=== PATIENT | female | born 1960 | race Caucasian/White ===

== ENCOUNTER 2017-10-25 20:37 | Emergency (ER) | payer SELFPAY ==
[2017-10-25] MEDS ORDERED: FENTANYL CITRATE INJ/PF 100 MCG/2 ML AMPUL IV ONE ×3 (20:56→23:18)
[2017-10-25] MEDS ORDERED: ONDANSETRON HCL INJ/PF 4 MG/2 ML SDV IV ONE (21:26)
--- NOTE | 2017-10-25 21:45 | RADIOLOGY REPORT (SQ) ---
EXAM DESCRIPTION: ELBOW LEFT AP/LATERAL COMPLETED DATE/TIME: 10/25/2017 9:33 pm REASON FOR STUDY: fall obtain COMPARISON: None. NUMBER OF VIEWS: Two views. TECHNIQUE: AP and lateral radiographic images acquired of the left elbow. LIMITATIONS: None. FINDINGS: MINERALIZATION: Normal. BONES: Comminuted fracture of the distal humerus. Displacement of the medial epicondyle. JOINT: Joint effusion. SOFT TISSUES: No soft tissue swelling. No foreign body. OTHER: No other significant finding. IMPRESSION: COMMINUTED FRACTURE OF THE DISTAL HUMERUS. TECHNICAL DOCUMENTATION: JOB ID: [id number] [employer]- All Rights Reserved Reading location - IP/workstation name: [email or web address]
--- NOTE | 2017-10-25 21:45 | RADIOLOGY REPORT (SQ) ---
EXAM DESCRIPTION: SHOULDER LEFT 2 OR MORE VIEWS COMPLETED DATE/TIME: 10/25/2017 9:33 pm REASON FOR STUDY: fall obtain COMPARISON: None. NUMBER OF VIEWS: Two views. TECHNIQUE: Frontal and lateral images acquired of the left shoulder. LIMITATIONS: None. FINDINGS: MINERALIZATION: Normal. BONES: No acute fracture or dislocation. No worrisome bone lesions. JOINTS: No dislocation. VISUALIZED LUNGS AND RIBS: No pneumothorax. No rib fracture. SOFT TISSUES: No radiopaque foreign body. OTHER: No other significant finding. IMPRESSION: NEGATIVE STUDY OF THE LEFT SHOULDER. NO RADIOGRAPHIC EVIDENCE OF ACUTE INJURY. TECHNICAL DOCUMENTATION: JOB ID: [id number] [email or web address]- All Rights Reserved Reading location - IP/workstation name: [email or web address]
--- NOTE | 2017-10-25 21:46 | RADIOLOGY REPORT (SQ) ---
EXAM DESCRIPTION: WRIST LEFT 3 VIEWS COMPLETED DATE/TIME: 10/25/2017 9:33 pm REASON FOR STUDY: fall obtain COMPARISON: None. NUMBER OF VIEWS: Three views. TECHNIQUE: AP, lateral, and oblique radiographic images acquired of the left wrist. LIMITATIONS: None. FINDINGS: MINERALIZATION: Normal. BONES: Comminuted impacted fractures of the distal radius and ulna with dorsal angulation. SOFT TISSUES: No soft tissue swelling. No foreign body. OTHER: No other significant finding. IMPRESSION: FRACTURES OF THE DISTAL RADIUS AND ULNA. TECHNICAL DOCUMENTATION: JOB ID: [id number] [employer]- All Rights Reserved Reading location - IP/workstation name: [email or web address]
[2017-10-25] MEDS ORDERED: BUPIVACAINE HCL 0.25 % INJ/PF (2.5 MG/1 ML) 30 ML VIAL INJ ONE (22:02)
[2017-10-25] MEDS ORDERED: LORAZEPAM INJ 2 MG/1 ML VIAL IV ONE (22:17)
[2017-10-25] MEDS ORDERED: KETOROLAC TROMETHAMINE INJ/PF 30 MG/1 ML SDV IV ONE (22:22)
--- NOTE | 2017-10-25 23:22 | ER Document Report ---
ED General - General Chief Complaint: Arm Injury Stated Complaint: FALL Time Seen by Provider: 10/25/17 20:46 - HPI Patient complains to provider of: Left arm injury Notes: Patient coming in for left arm injury. Patient states that she was in a motor home she fell landing on her left arm. Patient has obvious deformity to the wrist was placed in Garcia splint by EMS transported the ER. Patient was given 100 fentanyl prior to arrival. Patient continues to be in pain. Patient denies any loss consciousness denies any other areas of pain. Past Medical History - Social History Smoking Status: Unknown if Ever Smoked Family History: Reviewed & Not Pertinent Patient has suicidal ideation: No Patient has homicidal ideation: No - Past Medical History Cardiac Medical History: Reports: Hx Hypercholesterolemia Renal/ Medical History: Denies: Hx Peritoneal Dialysis Psychiatric Medical History: Reports: Hx Attention Deficit Hyperactivity Disorder Past Surgical History: Reports: Hx Abdominal Surgery - 2013 Review of Systems - Review of Systems Constitutional: No symptoms reported EENT: No symptoms reported Cardiovascular: No symptoms reported Respiratory: No symptoms reported Gastrointestinal: No symptoms reported Genitourinary: No symptoms reported Female Genitourinary: No symptoms reported Musculoskeletal: Other - Left arm injury Skin: No symptoms reported Hematologic/Lymphatic: No symptoms reported Neurological/Psychological: No symptoms reported Physical Exam - Vital signs Vitals: Resp Pulse Ox 16 96 10/25/17 21:07 10/25/17 21:07 Interpretation: Normal - General General appearance: Appears well, Alert - HEENT Head: Normocephalic, Atraumatic Eyes: Normal Pupils: PERRL - Respiratory Respiratory status: No respiratory distress Chest status: Nontender Breath sounds: Normal Chest palpation: Normal - Cardiovascular Rhythm: Regular Heart sounds: Normal auscultation Murmur: No - Abdominal Inspection: Normal Distension: No distension Bowel sounds: Normal Tenderness: Nontender Organomegaly: No organomegaly - Back Back: Normal, Nontender - Extremities General upper extremity: Normal color, Normal temperature, Other - Right arm unaffected left arm has obvious deformity to the left wrist and some swelling to the elbow. Patient is tender to palpation of the shoulder elbow and left wrist. General lower extremity: Normal inspection, Nontender, Normal color, Normal ROM , Normal temperature, Normal weight bearing. No: Aline's sign - Neurological Neuro grossly intact: Yes Cognition: Normal Orientation: AAOx4 Miguel Coma Scale Eye Opening: Spontaneous Miguel Coma Scale Verbal: Oriented Hi Hat Coma Scale Motor: Obeys Commands Miguel Coma Scale Total: 15 Speech: Normal Motor strength normal: LUE, RUE, LLE, RLE Sensory: Normal - Psychological Associated symptoms: Normal affect, Normal mood - Skin Skin Temperature: Warm Skin Moisture: Dry Skin Color: Normal Course - Re-evaluation Re-evalutation: 10/25/17 23:20 Distal humerus fracture with displacement of the medial condyle. Patient also has a distal radius fracture with some angulation along with distal ulnar fracture. Hematoma block was performed patient is required multiple doses of fentanyl as that we are currently out of Dilaudid and morphine. I did discuss case with orthopedics on-call Dr. Reyes requesting a CT scan of the elbow. We will have the patient follow-up in his office gentle traction was placed on the distal wrist and sugar tong with a posterior long-arm was placed compartments are soft 10/25/17 23:23 10/25/17 23:48 Patient was splinted with my assistance. The child gentle traction to try realign the distal pieces of the radius unla however patient did not seem to tolerate this procedure well do not know exactly aligned the pieces however patient will follow up with orthopedics tomorrow Refill intact sensation intact distal. - Vital Signs Vital signs: Temp Pulse Resp BP Pulse Ox 19 150/88 H 94 10/26/17 01:01 10/26/17 01:01 10/26/17 01:01 Procedures - Immobilization Left Arm Immobilizer type: Long arm posterior, Sugar tong Performed by: Provider assisted Post-Proc Neuro Vasc Exam: Normal Notes: 10/25/17 23:50 Patient received multiple narcotic medications and hematoma block upon manipulation patient continued to state increased pain does have some movement of the distal pieces however do not believe alignment was perfect. Patient has a long-arm along with sugar tong for her elbow and wrist fractures. Patient follow-up with orthopedics tomorrow. Discharge - Discharge Clinical Impression: Medial epicondyle displacement Closed fracture distal radius and ulna Qualifiers: Encounter type: initial encounter Laterality: left Qualified Code(s): S52.502A - Unspecified fracture of the lower end of left radius, initial encounter for closed fracture Humeral distal fracture Qualifiers: Encounter type: initial encounter Fracture type: closed Fracture morphology: unspecified fracture morphology Laterality: left Qualified Code(s): S42.402A - Unspecified fracture of lower end of left humerus, initial encounter for closed fracture Condition: Good Disposition: HOME, SELF-CARE Instructions: Fractured Radius and Ulna ([facility]), Oral Narcotic Medication ([facility]) Additional Instructions: Please follow-up with orthopedics. I would suggest calling their office tomorrow to schedule an appointment. Please continue to wear the sling and the splint until you follow-up with orthopedics. Take pain medication as prescribed he also may take Tylenol and Motrin for pain control. Prescriptions: Ibuprofen [Motrin 600 mg Tablet] 600 mg PO Q8HP PRN #90 tablet PRN Reason: Oxycodone HCl 5 - 10 mg PO Q6 PRN #30 tablet PRN Reason: Referrals: MISSY DRAKE NP [Primary Care Provider] - Follow up as needed VARSHA SENIOR MD [ACTIVE STAFF] - Follow up as needed (Call Dr. Schroeder office tomorrow to set up an orthopedic appointment.)
[2017-10-25] MEDS ORDERED: HYDROCODONE/ACETAMINOPHEN 5-325 MG (6 TAB/ER DISP) PO PRN (23:27)
[2017-10-25] MEDS ORDERED: HYDROCODONE/ACETAMINOPHEN 5-325 MG TABLET PO ONE (23:28)
--- NOTE | 2017-10-25 23:30 | RADIOLOGY REPORT (SQ) ---
EXAM DESCRIPTION: CT LT UPPER EXTREMITY WITHOUT CLINICAL HISTORY: 57 years Female, elbow pain fracture COMPARISON: CR, same day. TECHNIQUE: No contrast. Coronal and sagittal reformat. This exam was performed according to our departmental dose-optimization program, which includes automated exposure control, adjustment of the mA and/or kV according to patient size and/or use of iterative reconstruction technique. FINDINGS: Comminuted, complex predominantly intercondylar fracture of the distal humerus with intra-articular components and fracture extending 5 cm into the distal diaphysis of the right humerus. IMPRESSION: Complex intercondylar fracture of the distal left humerus.
[2017-10-26 01:14] VITALS: BP 150/88
== END 2017-10-26 01:30 | disposition home or self-care (01) ==
LOC: ER 20:37
PROC: 0PSGXZZ Reposition Left Humeral Shaft, External Approach (ICD-10-PCS; principal; 2017-10-25)
DX: S42.442A Displaced fracture (avulsion) of medial epicondyle of left humerus, initial encounter for closed fracture (principal); S52.502A Unspecified fracture of the lower end of left radius, initial encounter for closed fracture; S42.402A Unspecified fracture of lower end of left humerus, initial encounter for closed fracture; W18.30XA Fall on same level, unspecified, initial encounter; E78.00 Pure hypercholesterolemia, unspecified
CPT/HCPCS: 99284; 96374; 96375; 73070; 73030; 73110; 73200; 24565; J3010; J1885; J2060; J2405

== ENCOUNTER 2017-11-01 10:15 | Day surgery (SDC) | payer SELFPAY ==
--- NOTE | 2017-10-31 13:14 | RADIOLOGY REPORT (SQ) ---
EXAM DESCRIPTION: CHEST PA/LATERAL COMPLETED DATE/TIME: 10/31/2017 1:01 pm REASON FOR STUDY: PRE OP COMPARISON: None. EXAM PARAMETERS: NUMBER OF VIEWS: two views TECHNIQUE: Digital Frontal and Lateral radiographic views of the chest acquired. RADIATION DOSE: NA LIMITATIONS: none FINDINGS: LUNGS AND PLEURA: No opacities, masses or pneumothorax. No pleural effusion. MEDIASTINUM AND HILAR STRUCTURES: No masses or contour abnormalities. HEART AND VASCULAR STRUCTURES: Heart normal size. No evidence for failure. BONES: Osteoporotic with 50% L1 compression deformity HARDWARE: None in the chest. OTHER: No other significant finding. IMPRESSION: NO SIGNIFICANT RADIOGRAPHIC FINDING IN THE CHEST. TECHNICAL DOCUMENTATION: JOB ID: [id number] [employer]- All Rights Reserved Reading location - IP/workstation name: [email or web address]
[2017-10-31 13:18] LABS: ABSOLUTE EOSINOPHILS # (AUTO) 0.2 10^3/uL (0.0-0.6); ABSOLUTE LYMPHOCYTES (AUTO) 1.5 10^3/uL (0.5-4.7); ABSOLUTE MONOCYTES (AUTO) 0.6 10^3/uL (0.1-1.4); ABSOLUTE NEUT (AUTO) 5.1 10^3/uL (1.7-8.2); BASOPHILS % (AUTO) 0.3 % (0-2); EOSINOPHILS % (AUTO) 2.2 % (0-6); HEMATOCRIT 35.4 % (36.0-47.0); HEMOGLOBIN 12.3 g/dL (12.0-15.5); LYMPHOCYTES % (AUTO) 19.8 % (13-45); MEAN CORPUSCULAR HEMOGLOBIN 29.8 pg (27.0-33.4); MEAN CORPUSCULAR HGB CONC 34.8 g/dL (32.0-36.0); MEAN CORPUSCULAR VOLUME 86 fl (80-97); MONOCYTES % (AUTO) 8.3 % (3-13); PLATELET COUNT 253 10^3/uL (150-450); RED BLOOD COUNT 4.12 10^6/uL (3.72-5.28); RED CELL DISTRIBUTION WIDTH 12.3 % (11.5-14.0); SEGMENTED NEUTROPHILS % (AUTO) 69.4 % (42-78); TOTAL CELLS COUNTED % (AUTO) 100 %; WHITE BLOOD COUNT 7.4 10^3/uL (4.0-10.5)
[2017-10-31 13:40] LABS: ANION GAP 10 (5-19); BLOOD UREA NITROGEN 13 mg/dL (7-20); CALCIUM 9.6 mg/dL (8.4-10.2); CARBON DIOXIDE 31 mmol/L (22-30); CHLORIDE 98 mmol/L (98-107); GLUCOSE 100 mg/dL (75-110); POTASSIUM 3.6 mmol/L (3.6-5.0); SODIUM 139.2 mmol/L (137-145)
--- NOTE | 2017-10-31 15:51 | EKG REPORT ---
SEVERITY:- BORDERLINE ECG - SINUS RHYTHM BORDERLINE INFERIOR Q WAVES BORDERLINE PROLONGED QT INTERVAL : Confirmed by: Donna Calderon 31-Oct-2017 15:51:22
[~2017-11-01 10:15] MED LIST: CEFAZOLIN 2 GM/D5W RTU 2 GM/50 ML RTUPB IV PRN; LACTATED RINGERS 1000 ML IV PRN; LIDOCAINE 0.5% INJ-PF (5 MG/ML) 50 ML SDV SUBCUT PRN
[2017-11-01 10:41] LABS: APPEARANCE,URINE SLIGHTLY-CLOUDY; BILIRUBIN,URINE NEGATIVE (NEGATIVE); COLOR,URINE YELLOW; GLUCOSE, URINE NEGATIVE (NEGATIVE); KETONES,URINE NEGATIVE (NEGATIVE); LEUKOCYTE ESTERASE,URINE MODERATE (NEGATIVE); NITRITE,URINE POSITIVE (NEGATIVE); PROTEIN,URINE NEGATIVE (NEGATIVE); UROBILINOGEN,URINE NEGATIVE mg/dL (<2.0)
[2017-11-01] MEDS ORDERED: BUPIVACAINE HCL 0.5 % INJ/PF 30 ML SDV ONE (11:08)
[2017-11-01] MEDS ORDERED: FENTANYL CITRATE INJ/PF 250 MCG/5 ML AMPULE ONE (11:15)
[2017-11-01] MEDS ORDERED: FENTANYL CITRATE INJ/PF 100 MCG/2 ML AMPUL ONE (11:15)
[2017-11-01] MEDS ORDERED: ACETAMINOPHEN 100 ML IV ONE (11:16)
[2017-11-01] MEDS ORDERED: MIDAZOLAM 2 MG/2 ML INJ ONE ×2 (11:16→12:07)
[2017-11-01] MEDS ORDERED: DEXAMETHASONE SOD PHOSPHATE INJ 4 MG/1 ML VIAL ONE (11:16)
[2017-11-01] MEDS ORDERED: EPHEDRINE SULFATE INJ 50 MG/1 ML AMPULE ONE (11:16)
[2017-11-01] MEDS ORDERED: PROPOFOL INJ 200 MG/20 ML VIAL IV ONE (11:16)
[2017-11-01] MEDS ORDERED: ONDANSETRON HCL INJ/PF 4 MG/2 ML SDV ONE (11:16)
[2017-11-01] MEDS ORDERED: FENTANYL CITRATE INJ/PF 100 MCG/2 ML AMPUL IV PRN ×6 (13:40→18:21)
[2017-11-01] MEDS ORDERED: PROMETHAZINE HCL INJ 25 MG/1 ML VIAL IV PRN ×2 (13:40→18:21)
[2017-11-01] MEDS ORDERED: DIPHENHYDRAMINE HCL 50 MG/ML VIAL IV PRN ×3 (13:40→18:21)
[2017-11-01] MEDS ORDERED: MEPERIDINE HCL/PF INJ 25 MG/1 ML DISP.SYRIN IV PRN (13:40)
[2017-11-01] MEDS ORDERED: SUCCINYLCHOLINE CHLORIDE INJ 200 MG/10 ML VIAL ONE (15:01)
[2017-11-01] MEDS ORDERED: LABETALOL HCL INJ 20 MG/4 ML DISP.SYRIN IV ONE (15:52)
--- NOTE | 2017-11-01 16:26 | RADIOLOGY REPORT (SQ) ---
EXAM DESCRIPTION: NO CHG FLUORO; WRIST LEFT 3 VIEWS COMPLETED DATE/TIME: 11/01/2017 3:15 pm REASON FOR STUDY: ORIF LEFT WRIST ASST WITH FLUORO IN OR COMPARISON: Radiographs 10/25/2017 FLUOROSCOPY TIME: 1 minutes 2 seconds 5 Images saved to PACS RADIATION DOSE: 1.3 mGy LIMITATIONS: None. PROCEDURE: ORIF distal radial and ulnar fractures PE FINDINGS: Images obtained from fluoro document placement of a compression plate on the distal radius secured by multiple screws and a medullary pin or dwight in the distal ulna. IMPRESSION: ORIF. Refer to operative note for further information. COMMENT: PQRS 6045F: Fluoroscopy time of the procedure is documented in the report. TECHNICAL DOCUMENTATION: JOB ID: [id number] [employer]- All Rights Reserved Reading location - IP/workstation name: [email or web address]
--- NOTE | 2017-11-01 16:26 | RADIOLOGY REPORT (SQ) ---
EXAM DESCRIPTION: NO CHG FLUORO; WRIST LEFT 3 VIEWS COMPLETED DATE/TIME: 11/01/2017 3:15 pm REASON FOR STUDY: ORIF LEFT WRIST ASST WITH FLUORO IN OR COMPARISON: Radiographs 10/25/2017 FLUOROSCOPY TIME: 1 minutes 2 seconds 5 Images saved to PACS RADIATION DOSE: 1.3 mGy LIMITATIONS: None. PROCEDURE: ORIF distal radial and ulnar fractures PE FINDINGS: Images obtained from fluoro document placement of a compression plate on the distal radius secured by multiple screws and a medullary pin or dwight in the distal ulna. IMPRESSION: ORIF. Refer to operative note for further information. COMMENT: PQRS 6045F: Fluoroscopy time of the procedure is documented in the report. TECHNICAL DOCUMENTATION: JOB ID: [id number] [email or web address]- All Rights Reserved Reading location - IP/workstation name: [email or web address]
[2017-11-01] MEDS ORDERED: ONDANSETRON 4 MG TAB.RAPDIS PO PRN (18:09)
--- NOTE | 2017-11-01 18:09 | Discharge Summary ---
Discharge Summary (SDC) - Discharge Final Diagnosis: Fracture of distal radius and ulna, fracture of distal humerus Date of Surgery: 11/01/17 Discharge Date: 11/02/17 Condition: Good Treatment or Instructions: Schedule Follow Up w/ Dr. Castillo Wright @ [facility] to be seen in 10-14 days or as scheduled Welcome: [place]: [place]: Ice and elevate Keep splint clean/dry/intact. If your fingers become numb please unwrap the Grant wrap but leave the splint in place, if the sensation does not return within 30 minutes please return to the emergency department. May begin finger range of motion attempting to make full fist. Please use ibuprofen (Motrin or Advil) 600-800 mg every 8 hours as needed for pain or fever DO NOT TAKE w/ TORADOL may use once TORADOL complete. You may also use acetaminophen (Tylenol) 1000 mg every 4-6 hours as needed for pain or fever. Please be aware that many medications contain acetaminophen, do not exceed a total of 1000 mg of acetaminophen every 6 hours. If ibuprofen and acetaminophen are not sufficient for your pain you may take the Percocet/[place]. Please be aware that the Percocet/[place] does contain Tylenol. Stool softener of choice when on pain medication. Prescriptions: Nitrofurantoin Monohyd/M-Cryst [Macrobid 100 mg Capsule] 100 mg PO BID 7 Days # 14 capsule Oxycodone HCl/Acetaminophen [Endocet 7.5-325 mg Tablet] 1 each PO Q6 #40 tablet Referrals: MISSY DRAKE NP [Primary Care Provider] - Discharge Diet: As Tolerated, Regular Respiratory Treatments at Home: Deep Breathing/Coughing Discharge Activity: No Lifting Over 10 Pounds, No Lifting/Push/Pulling Home Care Assistance: None Needed Report the Following to Your Physician Immediately: Shortness of Breath, Fever over 101 Degrees, Unusual Bleeding, Redness, Swelling, Warmth, Drainage-Yellow
--- NOTE | 2017-11-01 18:27 | Operative Report ---
Operative Report DATE OF SURGERY: 11/01/17 PREOPERATIVE DIAGNOSIS: Left Extra-articular Distal Radius Fracture. Left Distal Ulnar Fracture. Left Distal Humerus Fracture POSTOPERATIVE DIAGNOSIS: Same OPERATION: ORIF Left Extra-articular Distal Radius Fracture. ORIF Left Distal Ulnar Fracture. ORIF Left Distal Humerus Fracture SURGEON: DEBBIE MCBRIDE APARTMENT GROUNDSKEEPER: JEREMIE GOMES ANESTHESIA: GA COMPLICATIONS: None ESTIMATED BLOOD LOSS: 75cc PROCEDURE: Indication for above procedure: 57-year-old female who sustained a fall onto her outstretched left upper extremity. Patient was seen at the emergency room where x-rays demonstrated concomitant distal radius and humerus fracture. Closed reduction was attempted of her distal radius she subsequently followed up at my office at which point we discussed treatment options including operative versus nonoperative intervention. Risks and benefits were explained patient verbalized understanding consented for the procedure. Procedure In Detail: Patient was seen and evaluated in the preoperative holding area. The upper extremity was initialized and marked. Patient received 2g of Ancef IV for bacterial prophylaxis. Patient was taken back to the operative room where transferred to the operative table and placed under general anesthesia. Once they were adequately anesthetized and a nonsterile tourniquet was placed on his upper extremity. A surgical team debriefing was performed ensuring all instrumentation was available, the surgical procedure was discussed with possible concerns reviewed. The upper extremity was prepped with chlorhexidine and alcohol and draped in a sterile fashion. A timeout was done identifying correct patient, procedure and extremity everyone in attendance agree with this and verbalized no concerns.The extremity was exsanguinated the tourniquet was inflated to 250 mmHg. There was tenting of the skin anteriorly but no evidence of skin compromise. A longitudinal skin incision was made via a volar approach of Marino along the FCR tendon sheath. The FCR tendon sheath was opened and the FCR retracted ulnarly, the palmar cutaneous branch of the median nerve was identified and protected throughout the entirety of the case. Inspection of the median nerve demonstrated contusion just proximal to the wrist crease. No evidence of discontinuity. The radial artery was identified and retracted radially. Blunt dissection was performed to the FPL which was carefully sweeped ulnarly. This brought me to the pronator quadratus which was significantly disrupted secondary to original injury. Carefully elevated the pronator quadratus proximally and distally to expose the fracture. There was 100% dorsal displacement of the distal radius. With a [place]in[place] elevator this was reduced in a near anatomic position. 2 Campbell wires were placed to hold the fracture reduction. I then placed a narrow [place] distal radius plate which was secured proximally with 2 K wires. C-arm fluoroscopy was obtained confirming appropriate placement of the plate. The plate was then fixated distally first with a bicortical screw to bring the plate down to bone and avoid postoperative flexor tendon irritation. The remaining screws were then drilled and the appropriate size locking screws placed. The previous bicortical screw was replaced with a locking screw. The plate was then reduced to the radial shaft and C-arm was obtained confirming religious of radial height, inclination and volar tilt. Once this was confirmed the proximal aspect of the plate was fixated with 2 bicortical screws and then an additional locking screw. C-arm fluoroscopy demonstrated septal reduction without evidence of intra-articular screw penetration. No evidence of fracture instability. No crepitus with wrist range of motion. Negative Hunt's. There was instability of the patient's distal ulna fracture thus I proceeded with fixation of the distal ulna. Through the Marino approach the ulnar fracture was visualized and held reduced. A 0.062 K wire was then placed on the proximal fragment into the ulnar shaft. This successfully reduce the fracture and improve patient's instability. C-arm fluoroscopy was obtained confirming appropriate placement of the K wire. The K wire was then bent and cut in a Jurgan's ball placed. The wound was copiously irrigated with normal saline. Tourniquet was deflated. Peripheral venous bleeding was controlled with bipolar cautery. Attempted to repair the pronator quadratus but given the original disruption of the a portion was repairable with 3-0 Vicryl suture. Subcutaneous tissues were closed with 3-0 Vicryl suture. Skin was closed with a running horizontal mattress 4-0 nylon suture. 10 cc of 0.5% Marcaine without epinephrine was injected for postoperative pain control. Patient was placed in a volar resting splint. I then turned my attention to fixation of the distal humerus. Patient was placed in the lateral recumbent position under a beanbag. Bilateral lower extremities and nonoperative right upper extremity was carefully padded. The extremity was then prepped with ChloraPrep and draped in a sterile fashion. A sterile tourniquet was placed. The extremity was exsanguinated and tourniquet was inflated to 250 mmHg. Longitudinal skin incision with curvilinear medial extension was utilized. Blunt dissection was performed. Branch of the medial antebrachial cutaneous nerve was retracted with the skin flap. Ulnar nerve was identified proximally at the level of the medial triceps. Dewitt's ligament was released down to the fascia of the FCU. The fascia of the FCU was released. A [place] drain was placed around the nerve and the nerve was retracted anteriorly. A small subcutaneous pocket was developed to place the nerve and allow for later subcutaneous ulnar nerve transposition. Once the ulnar nerve was protected proceed with exposure of the fracture. The medial epicondyle was identified and the fracture site irrigated with saline. I then bluntly dissected deep to the triceps to the lateral aspect. Skin flap was developed. A branch of the radial nerve was identified at the triceps and retracted. The radial nerve was also identified anterior to the lateral intermuscular septum to ensure no impingement of the hardware. A portion of the extensor mechanism was released from the lateral epicondyle. The lateral epicondyle condyle fragment was then reduced and secured with a 0.62 K wire. Once this was adequately reduced my attention turned to the medial epicondyle fragment. The medial epicondyle fragment was similarly reduced with a 0.062 K wire which was placed through the transverse fragment at the epicondyle through the medial condyle and into the intact proximal shaft. C -arm fluoroscopy was obtained which demonstrated acceptable reduction of the fracture. A Suzanne posterior lateral plate was then secured with K wires and C arm obtained demonstrating appropriate placement of the plate. The plate was then fixated proximally with bicortical fixation. A clamp was placed around the fracture and the plate was secured distally first with a bicortical screw to bring the plate down to bone I completed fixation with 2 additional locking screws and replaced my previous cortex screw with a locking screw. Plate fixation was completed proximally with bicortical fixation using one cortex screw and one locking screw. C-arm fluoroscopy demonstrated acceptable reduction of the fracture I then turned my attention to the medial column. With the fracture reduced a Suzanne medial column plate was placed and secured into position. C-arm fluoroscopy was obtained confirming appropriate placement of the plate. Once I liked the placement of the plate I fixated proximally with bicortical fixation. A screw running along the medial column was then placed through the transverse fragment at the medial epicondyle with a locking screw securing this fragment. I then completed fixation distally with 3 additional locking screws. During placement of the screws the olecranon fossa was visualized to avoid screw penetration within this blocking extension. Once fixation was completed I completed fixation with bicortical and a locking screw proximally. C-arm fluoroscopy was obtained which demonstrated religious of patient's alignment. No evidence of hardware malalignment. Patient full flexion and extension without evidence of mechanical block. The tourniquet was then deflated any peripheral bleeding was controlled with cautery until the wound was dry. The ulnar nerve was then transposed subcutaneously secured with 2-0 Vicryl while my assistant chief engineer held a [place] to avoid inadvertent compression. Subcutaneous tissues were then reapproximated with 3- 0 Monocryl suture. Skin was closed with tammie. 20 cc of 0.5% Marcaine with epinephrine was injected for postoperative pain control. Wound was dressed with Xeroform 4 x 4's and ABD. Patient was placed in a well- padded posterior splint maintaining elbow flexion of 60. Sponge counts, instrument counts, needle counts counts were correct. Patient was then awoken from anesthesia. Transferred from the operating room table to the operating room stretcher. There was no intraoperative complications patient tolerated procedure well stable to PACU. Postoperative plan: Patient will follow-up the office in 2 weeks will be transitioned to a removable wrist brace and a posterior elbow splint. Will begin elbow range of motion 4 weeks postoperatively. Will be admitted for observation 24 hours.
--- NOTE | 2017-11-01 18:27 | RADIOLOGY REPORT (SQ) ---
EXAM DESCRIPTION: NO CHG FLUORO; ELBOW LEFT AP/LATERAL COMPLETED DATE/TIME: 11/01/2017 6:07 pm REASON FOR STUDY: ORIF LT ELBOW COMPARISON: 10/25/2017 FLUOROSCOPY TIME: 2 minutes 5 Images saved to PACS LIMITATIONS: None. PROCEDURE: Open reduction internal fixation of distal humeral fracture. FINDINGS: Images obtained from fluoro document the open reduction and internal fixation humeral frac ture. IMPRESSION: Open reduction internal fixation of humeral fracture. Refer to operative note for furth er details. COMMENT: PQRS 6045F: Fluoroscopy time of the procedure is documented in the report. TECHNICAL DOCUMENTATION: JOB ID: [id number] [email or web address]- All Rights Reserved Reading location - IP/workstation name: [email or web address]
--- NOTE | 2017-11-01 18:27 | RADIOLOGY REPORT (SQ) ---
EXAM DESCRIPTION: NO CHG FLUORO; ELBOW LEFT AP/LATERAL COMPLETED DATE/TIME: 11/01/2017 6:07 pm REASON FOR STUDY: ORIF LT ELBOW COMPARISON: 10/25/2017 FLUOROSCOPY TIME: 2 minutes 5 Images saved to PACS LIMITATIONS: None. PROCEDURE: Open reduction internal fixation of distal humeral fracture. FINDINGS: Images obtained from fluoro document the open reduction and internal fixation humeral frac ture. IMPRESSION: Open reduction internal fixation of humeral fracture. Refer to operative note for furth er details. COMMENT: PQRS 6045F: Fluoroscopy time of the procedure is documented in the report. TECHNICAL DOCUMENTATION: JOB ID: [id number] [employer]- All Rights Reserved Reading location - IP/workstation name: [email or web address]
[2017-11-01] MEDS: OXYCODONE HCL SR 10 MG TABLET PO SCH (21:12)
[2017-11-01] MEDS: RIVAROXABAN 10 MG TABLET PO SCH (21:14)
[2017-11-01] MEDS: CIPROFLOXACIN 400 MG/D5W RTU 400 MG/200 ML RTUPB IV SCH (21:17)
[2017-11-01] MEDS: OXYCODONE HCL IR 5 MG TABLET PO PRN (23:03)
[2017-11-02] MEDS: KETOROLAC TROMETHAMINE INJ/PF 30 MG/1 ML SDV IV SCH ×5 (00:05→23:36)
[2017-11-02] MEDS ORDERED: ACETAMINOPHEN 100 ML IV ONE (00:09)
[2017-11-02] MEDS: OXYCODONE HCL IR 5 MG TABLET PO PRN (06:24)
[2017-11-02] MEDS: CIPROFLOXACIN 400 MG/D5W RTU 400 MG/200 ML RTUPB IV SCH ×2 (09:23→22:14)
[2017-11-02] MEDS: OXYCODONE HCL SR 10 MG TABLET PO SCH ×2 (09:24→22:18)
[2017-11-02] MEDS: PREGABALIN 75 MG CAPSULE PO SCH ×2 (09:24→18:47)
--- NOTE | 2017-11-02 20:05 | PDOC PROGRESS REPORT ---
Subjective Progress Note for:: 11/02/17 Subjective:: Patient complaining of significant pain of her left elbow and wrist. Patient states she was crying in pain overnight. Reason For Visit: LEFT DISTAL HUMERUS FRACTURE/LEFT DISTAL RADIUS Physical Exam Vital Signs: Temp Pulse Resp BP Pulse Ox 36.3 C 103 H 12 110/68 95 11/02/17 15:19 11/02/17 15:19 11/02/17 15:19 11/02/17 15:19 11/02/17 15:19 Intake & Output 11/01/17 11/02/17 11/03/17 06:59 06:59 06:59 Intake Total 3050 355 Output Total 2750 400 Balance 300 -45 Weight 61.23 kg 61.23 kg General appearance: PRESENT: no acute distress Adult Front & Back Image: 1 - Splint and dressing is dry clean and intact. Good sensation to light touch of the digits and good capillary refill despite her subjective complaints of tingling of her fingertips. Alling is under control. Results Laboratory Results: 10/31/17 12:20 10/31/17 12:20 Impressions: Chest X-Ray 10/31/17 12:47 IMPRESSION: NO SIGNIFICANT RADIOGRAPHIC FINDING IN THE CHEST. Elbow X-Ray 11/01/17 00:00 IMPRESSION: Open reduction internal fixation of humeral fracture. Refer to operative note for further details. Fluoroscopy 11/01/17 00:00 IMPRESSION: Open reduction internal fixation of humeral fracture. Refer to operative note for further details. Wrist X-Ray 11/01/17 00:00 IMPRESSION: ORIF. Refer to operative note for further information. Assessment & Plan - Plan Summary Plan Summary: Postop day 1 from ORIF of her left distal humerus and left distal radius fracture. Nonweightbearing left upper extremity and keep elevated with pillows. Patient will stay one more night for pain control. Plan to discharge in the morning.
[2017-11-02] MEDS ORDERED: ZOLPIDEM TARTRATE 5 MG TABLET PO PRN (20:43)
[2017-11-02] MEDS: RIVAROXABAN 10 MG TABLET PO SCH (22:14)
[2017-11-03] MEDS: KETOROLAC TROMETHAMINE INJ/PF 30 MG/1 ML SDV IV SCH ×2 (05:44→11:04)
--- NOTE | 2017-11-03 07:48 | PDOC DISCHARGE SUMMARY ---
General - Admit/Disc Date/PCP Admission Date/Primary Care Provider: MISSY DRAKE NP Discharge Date: 11/03/17 - Additional Information Discharge Diet: As Tolerated, Regular Discharge Activity: No Lifting Over 10 Pounds, No Lifting/Push/Pulling Prescriptions: Nitrofurantoin Monohyd/M-Cryst [Macrobid 100 mg Capsule] 100 mg PO BID 7 Days # 14 capsule Oxycodone HCl/Acetaminophen [Endocet 7.5-325 mg Tablet] 1 each PO Q6 #40 tablet Home Medications: Ibuprofen [Motrin 600 mg Tablet] 600 mg PO Q8HP PRN #90 tablet 10/25/17 Dextroamphetamine/Amphetamine [Adderall 10 mg Tablet] 10 mg PO DAILY 10/31/17 Dextroamphetamine/Amphetamine [Adderall Xr 20 mg Capsule] 20 mg PO DAILY Esomeprazole Magnesium [Nexium] 20 mg PO DAILY 10/31/17 Fluoxetine HCl [Prozac] 20 mg PO DAILY 10/31/17 Loratadine [Claritin] 10 mg PO DAILY 10/31/17 Simvastatin 10 mg PO QHS 10/31/17 Ubidecarenone [Co Q-10] 200 mg PO DAILY 10/31/17 Nitrofurantoin Monohyd/M-Cryst [Macrobid 100 mg Capsule] 100 mg PO BID 7 Days # 14 capsule 11/01/17 Oxycodone HCl/Acetaminophen [Endocet 7.5-325 mg Tablet] 1 each PO Q6 #40 tablet 11/01/17 History of Present Illness History of Present Illness: OFELIA GILL is a 57 year old female sustained a fall onto her outstretched left upper extremity. Patient was seen at the emergency room where x-rays demonstrated distal humerus and radius fracture. She was placed in a splint and sent to our office. Upon discussion of patient's radiographic findings decision was made to proceed with operative treatment. Hospital Course Hospital Course: On 11/01/17 patient underwent open reduction internal fixation of her distal radius and humerus. Patient postoperatively had no complications. However she continued to have discomfort and thus was kept for 48 hours postoperatively for pain control reasons. On 11/03/17 patient's pain notably improved. She states she has been elevating and this is helped her discomfort. She notes the numbness and tingling preoperatively has improved as well. Physical Exam Vital Signs: Temp Pulse Resp BP Pulse Ox 99.8 F 113 H 16 115/63 94 11/02/17 23:25 11/02/17 23:25 11/02/17 23:25 11/02/17 23:25 11/02/17 23:25 Intake & Output 11/02/17 11/03/17 11/04/17 06:59 06:59 06:59 Intake Total 3050 855 Output Total 2750 900 Balance 300 -45 Weight 61.23 kg General appearance: PRESENT: no acute distress, well-developed, well-nourished Head exam: PRESENT: atraumatic, normocephalic Eye exam: PRESENT: conjunctiva pink, EOMI, PERRLA. ABSENT: scleral icterus Ear exam: PRESENT: normal external ear exam Mouth exam: PRESENT: moist, tongue midline Neck exam: PRESENT: full ROM. ABSENT: carotid bruit, JVD, lymphadenopathy, thyromegaly Cardiovascular exam: PRESENT: RRR. ABSENT: diastolic murmur, rubs, systolic murmur Pulses: PRESENT: normal dorsalis pedis pul, +2 pedal pulses bilateral Vascular exam: PRESENT: normal capillary refill GI/Abdominal exam: PRESENT: normal bowel sounds, soft. ABSENT: distended, guarding, mass, organolmegaly, rebound, tenderness Rectal exam: PRESENT: deferred Musculoskeletal exam: PRESENT: other - Left upper extremity: Splint clean/dry/ intact no erythema or drainage. Swelling and ecchymosis of the digits. Pain no pain with passive stretch. Compartments soft and compressible no sign of compartment syndrome. Intact sensation to light touch median to ulnar nerve distribution. EPL/FPL intact. Intact flexion/extension of the IP and MP joints. Neurological exam: PRESENT: alert, awake, oriented to person, oriented to place , oriented to time, oriented to situation, CN II-XII grossly intact. ABSENT: motor sensory deficit Psychiatric exam: PRESENT: appropriate affect, normal mood. ABSENT: homicidal ideation, suicidal ideation Skin exam: PRESENT: dry, intact, warm. ABSENT: cyanosis, rash Results Laboratory Results: 10/31/17 12:20 10/31/17 12:20 Impressions: Chest X-Ray 10/31/17 12:47 IMPRESSION: NO SIGNIFICANT RADIOGRAPHIC FINDING IN THE CHEST. Elbow X-Ray 11/01/17 00:00 IMPRESSION: Open reduction internal fixation of humeral fracture. Refer to operative note for further details. Fluoroscopy 11/01/17 00:00 IMPRESSION: Open reduction internal fixation of humeral fracture. Refer to operative note for further details. Wrist X-Ray 11/01/17 00:00 IMPRESSION: ORIF. Refer to operative note for further information. Qualifiers - * PATEINT BEING DISCHARGED WITH ANY OF THE FOLLOWING DIAGNOSIS?: No Plan Discharge Plan: Patient's pain is notably improved today. Thus I feel patient is orthopedically stable for discharge to home. Patient is to aggressively ice and elevate the extremity. Patient is set up for postoperative appointment within 10-14 days. Patient should call the office any questions or concerns or increasing redness, swelling, pain, temperature greater than 101.5. Patient was read above instructions understood above instructions and is orthopedically stable for discharge to home.
[2017-11-03 08:40] VITALS: BP 133/81
[2017-11-03] MEDS: PREGABALIN 75 MG CAPSULE PO SCH (09:23)
[2017-11-03] MEDS: OXYCODONE HCL SR 10 MG TABLET PO SCH (09:23)
[2017-11-03] MEDS: CIPROFLOXACIN 400 MG/D5W RTU 400 MG/200 ML RTUPB IV SCH (09:24)
== END 2017-11-03 13:06 | disposition home or self-care (01) ==
LOC: OROUT 10:15 → 4N 19:00 → OROUT 11-03 13:06
PROVIDERS: ATTEND Orthopaedic Surgery
DX: S42.472A Displaced transcondylar fracture of left humerus, initial encounter for closed fracture (principal); S52.532A Colles' fracture of left radius, initial encounter for closed fracture; S52.602A Unspecified fracture of lower end of left ulna, initial encounter for closed fracture; W19.XXXA Unspecified fall, initial encounter; Z79.899 Other long term (current) drug therapy; Z79.1 Long term (current) use of non-steroidal anti-inflammatories (NSAID); Z87.891 Personal history of nicotine dependence
CPT/HCPCS: 93005; 36415; 85025; 80048; 81001; 71046; 73070; 73110; 93010; 24586; 25607; 25652; C1713 ×6; J2250; J3490 ×2; J1100; J3010 ×2; J1885 ×2; J0330; J2405; J2704; J0744 ×2; J0690; J0131 ×2; 01740